=== PATIENT | female | born 1935 ===

== ENCOUNTER → 2019-05-11 | Emergency (ER) | payer OTHER ==
[~2019-05-11] VITALS: Ht 149.9 cm; Wt 63.5 kg
[~2019-05-11] MED LIST: ALTACE5 MG; MULTI VITAMIN1 EACH; PANTOPRAZOLE SO40 MG; TOPROL XL100 M1
== END | disposition designated cancer center or children's hospital (05) ==
LOC: ER 09:18 → CPU-OBS 11:16
DX: I21.4 Non-ST elevation (NSTEMI) myocardial infarction (principal)

== ENCOUNTER 2019-06-03 00:58 | Emergency (ER) | payer OTHER ==
[~2019-06-03] VITALS: Ht 152.4 cm; Wt 72.6 kg
[2019-06-03] MEDS ORDERED: COUMADIN1 MG (01:14)
[2019-06-03] MEDS ORDERED: ANUSOL-HC25 MG RECTAL (08:26)
== END 2019-06-03 09:29 ==
LOC: ER 00:58
DX: T45.511A Poisoning by anticoagulants, accidental (unintentional), initial encounter (principal); K62.5 Hemorrhage of anus and rectum; Y92.89 Other specified places as the place of occurrence of the external cause